=== PATIENT | male | born 1980 | race Caucasian/White ===

== ENCOUNTER 2020-03-01 12:23 | Observation (INO) ==
[2020-03-01 14:21] LABS: ABS Basophils 0.2 10^3/ul (0-0.2); ABS Eosinophils 0.3 10^3/ul (0-0.6); ABS Lymphocytes 1.4 10^3/ul (1.0-4.8); ABS Monocytes 0.5 10^3/ul (0-0.8); ABS Neutrophils 4.7 10^3/ul (1.5-7.7); Eosinophil % 4.6 %; Hematocrit 40 % (42-52); Hemoglobin 13.8 g/dL (14.0-18.0); Lymphocyte % 19.4 %; Mean Corpuscular HGB Conc 34 g/dL (31-36); Mean Corpuscular Hemoglobin 31 pg (27-31); Mean Corpuscular Volume 89 fL (80-94); Mean Platelet Volume 8.5 fL (7.4-10.4); Platelet Count 296 10^3/uL (150-450); Red Blood Count 4.51 10^6 /uL (4.18-5.48); Red Cell Distribution Width 13 % (10-15); White Blood Count 7.2 10^3/uL (3.5-10.8)
[2020-03-01 14:35] LABS: ALT 15 U/L (7-52); AST 20 U/L (13-39); Albumin 4.4 g/dL (3.2-5.2); Albumin/Globulin Ratio 1.8 (1-3); Alkaline Phosphatase 40 U/L (34-104); Anion Gap 7 mmol/L (2-11); Blood Urea Nitrogen 22 mg/dL (6-24); CO2 Carbon Dioxide 26 mmol/L (22-32); Calcium 9.6 mg/dL (8.6-10.3); Chloride 103 mmol/L (101-111); EGFR African American 101.2 (>60); EGFR Non-African American 83.6 (>60); Globulin 2.4 g/dL (2-4); Glucose 108 mg/dL (70-100); Lipase 32 U/L (11.0-82.0); Sodium 136 mmol/L (135-145); Total Protein 6.8 g/dL (6.4-8.9)
[2020-03-01 14:39] LABS: Troponin I 0.03 ng/mL (<0.03)
[2020-03-01 15:40] LABS: Cholesterol 164 mg/dL; HDL Cholesterol 69.1 mg/dL; LDL Cholesterol 61 mg/dL; Triglycerides 169 mg/dL
[2020-03-01 16:58] LABS: Troponin I 0.03 ng/mL (<0.03)
[2020-03-01 19:30] LABS: Troponin I 0.03 ng/mL (<0.03)
[2020-03-02] MEDS ORDERED: IRBESARTAN 75 MG PO SCH (09:00)
[2020-03-02 12:12] VITALS: BP 117/80
== END 2020-03-02 12:58 | disposition home or self-care (01) ==
LOC: ED 12:23 → MEDTELE 12:23
PROVIDERS: ADMIT Student in an Organized Health Care Education/Training Program; ATTEND Student in an Organized Health Care Education/Training Program